=== PATIENT | female | born 1995 | race Caucasian/White ===

== ENCOUNTER → 2017-04-16 16:42 | Outpatient (CLI) | payer SELFPAY ==
[2017-04-16 17:46] LABS: Absolute Lymphocyte Count 3.15 X10^3/ul (0.83-4.51); Basophil# 0.04 X10^3/uL; Basophil% 0.3 % (0-1); Eosinophil# 0.18 X10^3/uL; Eosinophils% 1.5 % (0-5); Hematocrit 39.5 % (37-47); Hemoglobin 13.3 g/dl (12.0-15.0); Lymphocyte # 3.15 X10^3/ul (4.0); Lymphocyte % 25.8 % (19-41); Mean Corp Hgb Conc 33.7 g/gl (32-36); Mean Corpuscular Hgb 30.1 pg (27.0-32.0); Mean Corpuscular Volume 89.4 fL (81-99); Mean Platelet Vol. 9.6 fl (6.2-12.0); Monocyte# 0.81 X10^3/uL; Monocyte% 6.6 % (0-10); Neutrophil # 8.02 X10^3/uL (2.7-7.7); Neutrophil % 65.6 % (47-70); Platelet Count 209 K/mm3 (150-450); RBC Distribution Width CV 12.6 % (11.6-14.6); RBC Distribution Width SD 40.7 fl (35.1-43.9); Red Blood Count 4.42 M/mm3 (4.2-5.4); White Blood Count 12.2 K/mm3 (4.4-11.0)
[2017-04-16 17:56] LABS: Color, Urine Yellow (Yellow); Glucose, Dipstick Normal (Normal); Ketone-Dipstick Negative (Negative); Leukocyte Esterase-Dipstick 25 /ul (Negative); Nitrite-Dipstick Negative (Negative); Occult Blood-Urine 25 /ul (Negative); POSITIVE COUNT NO; POSITIVE DIFFERENTIAL NO; POSITIVE MORPHOLOGY NO; Protein-Dipstick Negative (Negative); Specific Gravity, Urine 1.015 (1.002-1.030); Urine Bilirubin Dipstick Negative (Negative); Urine Clarity Clear (Clear); Urine Urobilinogen Normal (Normal)
[2017-04-16 18:15] LABS: T4 Free Direct 0.76 ng/dL (0.76-1.46); Thyroid Stim Hormone (TSH) 3.58 uIU/mL (0.358-3.74)
[2017-04-16 19:37] LABS: HIV - WCH Non-Reactive (Nonreactive); Rubella IgG 305.2 IU/mL
[2017-04-16 19:51] LABS: Chlamydia Trachomatis by PCR Negative (Negative); Neisserai gonorrhoeae by PCR Negative (Negative); Probe Check PASS; Sample Adequacy Control PASS; Specimen Processing Control PASS
[2017-04-18 11:44] LABS: HEPATITIS B SURFACE AG Negative (Negative); Hep C Antibodies 0.1 s/co ratio (0.0-0.9)
[2017-04-20 02:54] LABS: Prenatal RPR NONREACTIVE (NONREACTIVE)
== END ==
PROVIDERS: Visit Provider Obstetrics & Gynecology
DX: Z34.81 Encounter for supervision of other normal pregnancy, first trimester (principal)
CPT/HCPCS: 36415; 81002; 84439; 84443; 85025; 86703; 86762; 86803; 87340; 87491; 87591

== ENCOUNTER → 2017-06-11 15:18 | Outpatient (CLI) | payer SELFPAY ==
[2017-06-11 15:24] LABS: Mucous, Urine 0 SEEN /hpf (<or=2+); Red Blood Cells-Urine 0 SEEN /hpf (0-5)
[2017-06-11 16:16] LABS: Color, Urine Straw (Yellow); Glucose, Dipstick Normal (Normal); Ketone-Dipstick Negative (Negative); Leukocyte Esterase-Dipstick 25 /ul (Negative); Nitrite-Dipstick Negative (Negative); Occult Blood-Urine 50 /ul (Negative); Protein-Dipstick Negative (Negative); Urine Bilirubin Dipstick Negative (Negative); Urine Clarity Sl. Cloudy (Clear); Urine Urobilinogen Normal (Normal)
[2017-06-11 16:38] LABS: Bacteria 3+ /hpf (None Seen); Squamous Epithelial Cells - UA 25-50 SEEN /hpf (5-10); White Blood Cells 5-10 SEEN /hpf (0-5)
[2017-06-11 17:50] LABS: Thyroid Stim Hormone (TSH) 2.29 uIU/mL (0.358-3.74)
[2017-06-12 12:26] LABS: Free T3 2.5 pg/mL (2.18-3.98); T4 Free Direct 1.02 ng/dL (0.76-1.46)
== END ==
PROVIDERS: Visit Provider Obstetrics & Gynecology
DX: Z34.82 Encounter for supervision of other normal pregnancy, second trimester (principal)
CPT/HCPCS: 36415; 81001; 84439; 84443; 84481

== ENCOUNTER → 2017-06-19 13:28 | Outpatient (CLI) | payer SELFPAY | PROVIDERS: Visit Provider Obstetrics & Gynecology | DX: N39.0 Urinary tract infection, site not specified (principal) | CPT/HCPCS: 87086 ==

== ENCOUNTER → 2017-08-10 15:49 | Outpatient (CLI) | payer SELFPAY | PROVIDERS: Visit Provider Otolaryngology Otolaryngology/Facial Plastic Surgery | DX: J03.90 Acute tonsillitis, unspecified (principal) | CPT/HCPCS: 87070; 87077 ==

== ENCOUNTER 2017-09-01 19:10 | Outpatient (CLI) | payer SELFPAY ==
[2017-09-01 20:03] VITALS: BMI 30.7
[2017-09-01 20:05] LABS: Bacteria 0 SEEN /hpf (None Seen); Mucous, Urine 0 SEEN /hpf (<or=2+); Red Blood Cells-Urine 0 SEEN /hpf (0-5); Squamous Epithelial Cells - UA 0 SEEN /hpf (5-10); White Blood Cells 0 SEEN /hpf (0-5)
[2017-09-01 20:08] LABS: Color, Urine Yellow (Yellow); Glucose, Dipstick Normal (Normal); Ketone-Dipstick Negative (Negative); Leukocyte Esterase-Dipstick Negative /ul (Negative); Nitrite-Dipstick Negative (Negative); Occult Blood-Urine Negative /ul (Negative); Protein-Dipstick Negative (Negative); Specific Gravity, Urine 1.005 (1.002-1.030); Urine Bilirubin Dipstick Negative (Negative); Urine Clarity Clear (Clear); Urine Urobilinogen Normal (Normal); Urine pH 6.5 (5.0 - 8.0)
--- NOTE | 2017-09-02 04:45 | OB.TRI.NOTE ---
History of Present Illness Date of Service: 09/01/17 Was patient seen by the physician?: No Reason For Visit: DECREASED MOVEMENT Date of Service: 09/01/17 Final PONCHO: 12/02/17 Gestational age: 26 wks 6 days History of Present Illness: 21 yo with dec FM. Had vaginal pain in last night or so, but this resolved. Took Azo. Allergies No Known Allergies Allergy (Verified 09/01/17 20:04) NST - FHR Rate Baby A Baseline: 130-140s with accels to 160s Variability:: Moderate Accelerations:: 15 x 15 Decelerations:: None, Early NST Reactive:: Yes, Appropriate for gestational age FHR Category:: Category I Uterine Activity:: no UCs Impression/Plan 26 w 6 d Decreased movement Reactive NST Dischg Home. Return to [facility] if inc s/sx of labor, or if dec movement
== END 2017-09-01 20:40 | disposition home or self-care (01) ==
LOC: WPOUT 19:32 → WP 19:56
PROVIDERS: Family Provider Family Medicine; PCP Family Medicine; Visit Provider Obstetrics & Gynecology
DX: O36.8120 Decreased fetal movements, second trimester, not applicable or unspecified (principal); Z3A.26 26 weeks gestation of pregnancy
CPT/HCPCS: 59025; 59050; 81001; 99218; G0378

== ENCOUNTER → 2017-09-06 09:27 | Outpatient (CLI) | payer SELFPAY ==
[2017-09-06 12:24] LABS: Hematocrit 32.3 % (37-47); Hemoglobin 10.2 g/dl (12.0-15.0); Mean Corp Hgb Conc 31.6 g/gl (32-36); Mean Corpuscular Hgb 28.7 pg (27.0-32.0); Mean Corpuscular Volume 90.7 fL (81-99); Mean Platelet Vol. 9.9 fl (6.2-12.0); Platelet Count 235 K/mm3 (150-450); RBC Distribution Width CV 12.8 % (11.6-14.6); RBC Distribution Width SD 42.1 fl (35.1-43.9); Red Blood Count 3.56 M/mm3 (4.2-5.4); White Blood Count 9.5 K/mm3 (4.4-11.0)
[2017-09-06 12:36] LABS: Scan Indicated on CBC? Y/N NO
[2017-09-06 12:41] LABS: Free T3 2.6 pg/mL (2.18-3.98); Glucose Challenge Gest 1H 50g 137 mg/dL (70-140); T4 Free Direct 0.71 ng/dL (0.76-1.46); Thyroid Stim Hormone (TSH) 1.64 uIU/mL (0.358-3.74)
== END ==
PROVIDERS: Visit Provider Obstetrics & Gynecology
DX: Z34.82 Encounter for supervision of other normal pregnancy, second trimester (principal)
CPT/HCPCS: 36415; 82950; 84439; 84443; 84481; 85027

== ENCOUNTER → 2017-11-02 10:42 | Outpatient (CLI) | payer SELFPAY ==
[2017-11-02 14:02] LABS: Free T3 2.3 pg/mL (2.18-3.98); T4 Free Direct 0.74 ng/dL (0.76-1.46); Thyroid Stim Hormone (TSH) 1.83 uIU/mL (0.358-3.74)
[2017-11-02 17:13] LABS: Group B Strep DNA By PCR Negative (Negative); Internal Control PASS; Probe Check PASS; Specimen Processing Control PASS
== END ==
PROVIDERS: Visit Provider Obstetrics & Gynecology
DX: Z34.83 Encounter for supervision of other normal pregnancy, third trimester (principal); E03.9 Hypothyroidism, unspecified; N39.0 Urinary tract infection, site not specified
CPT/HCPCS: 36415; 84439; 84443; 84481; 87081; 87086; 87088; 87653

== ENCOUNTER 2017-11-18 18:22 | Inpatient (IN) | payer SELFPAY ==
[2017-11-18 18:15] VITALS: BMI 34.0
[2017-11-18 18:17] LABS: ROM Internal Control Test YES-OK TO RESULT pt. (Internal QC)
[2017-11-18 18:18] LABS: ROM Patient Test POSITIVE (Negative)
[2017-11-18] MEDS: Lactated Ringers 1,000 ML 50 ML IV ×2 (18:35→21:37)
[2017-11-18 19:31] LABS: Hemoglobin 10.8 g/dl (12.0-15.0); Mean Corp Hgb Conc 30.9 g/gl (32-36); Mean Corpuscular Hgb 25.7 pg (27.0-32.0); Mean Corpuscular Volume 83.3 fL (81-99); Mean Platelet Vol. 10.4 fl (6.2-12.0); Platelet Count 203 K/mm3 (150-450); RBC Distribution Width CV 15.2 % (11.6-14.6); RBC Distribution Width SD 46.3 fl (35.1-43.9); White Blood Count 9.8 K/mm3 (4.4-11.0)
[2017-11-18 19:33] LABS: Scan Indicated on CBC? Y/N NO
[2017-11-18] MEDS: Mag Hydrox/Al Hydrox/Simeth 30 ML UDC PO (20:53)
[2017-11-18] MEDS: fentaNYL-bupivacaine (epidural) 100 ML BAG EPIDURAL (22:55)
[2017-11-19] MEDS: Lactated Ringers 1,000 ML 50 ML IV ×2 (00:03→04:47)
[2017-11-19] MEDS: fentaNYL-bupivacaine (epidural) 100 ML BAG EPIDURAL (02:43)
[2017-11-19] MEDS: Mag Hydrox/Al Hydrox/Simeth 30 ML UDC PO (04:46)
[2017-11-19] MEDS: Oxytocin 30 units/NS 500 ml 30 UNITS/500 ML IV.SOLN 334 UNITS IV (06:18)
--- NOTE | 2017-11-19 06:32 | PCM.OB.VAG ---
Vaginal Delivery Maternal Presentation: Active Labor, Spontaneous Rupture of Membranes Amniotic Membrane Rupture Type: Spontaneous Amniotic Fluid Description: Clear Final PONCHO: 12/02/17 Final PONCHO Source: US <20 weeks Gestational age: 38 Weeks and 1 Days Date of Procedure: 11/19/17 Pre-Operative Diagnosis: IUP Post-Operative Diagnosis: IUP Surgery/ Procedure Performed: Spontaneous Vaginal Delivery Anesthesiologist: Lemuel Recinos Type of Anesthesia: Epidural Description of Procedure: Spontaneous vaginal delivery of a viable female with Apgars of 8/9 from an occiput anterior presentation with clear amniotic fluid and normal three-vessel placenta. First-degree midline episiotomy extended to a second-degree midline laceration repaired in layers with 3-0 Vicryl suture under epidural and local. Sponge counts okay. Delivery physician: José Miguel Aiken MD. Presentation: Vertex Placental Delivery Description: Spontaneous Placenta Disposition: [facility] Cord Vessel Description: 3 Vessels Cord Entanglement: None Estimated Blood Loss: 250 cc A gender: Female (1 minute): 8 (5 minute): 9 Episiotomy Description: Midline, 1st degree Laceration: Midline, 2nd degree Medications given after delivery: IV Pitocin Complications: None
--- NOTE | 2017-11-19 06:36 | OP.PCM_ITS ---
Vaginal Delivery Maternal Presentation: Active Labor, Spontaneous Rupture of Membranes Amniotic Membrane Rupture Type: Spontaneous Amniotic Fluid Description: Clear Final PONCHO: 12/02/17 Final PONCHO Source: US <20 weeks Gestational age: 38 Weeks and 1 Days Date of Procedure: 11/19/17 Pre-Operative Diagnosis: IUP Post-Operative Diagnosis: IUP Surgery/ Procedure Performed: Spontaneous Vaginal Delivery Anesthesiologist: Lemuel Recinos Type of Anesthesia: Epidural Description of Procedure: Spontaneous vaginal delivery of a viable female with Apgars of 8/9 from an occiput anterior presentation with clear amniotic fluid and normal three-ves juliano placenta. First-degree midline episiotomy extended to a second-degree midline laceration repaired in layers with 3-0 Vicryl suture under epidural and local. Sponge counts okay. Delivery physician: José Miguel Aiken MD. Presentation: Vertex Placental Delivery Description: Spontaneous Placenta Disposition: [facility] Cord Vessel Description: 3 Vessels Cord Entanglement: None Estimated Blood Loss: 250 cc A gender: Female (1 minute): 8 (5 minute): 9 Episiotomy Description: Midline, 1st degree Laceration: Midline, 2nd degree Medications given after delivery: IV Pitocin Complications: None
--- NOTE | 2017-11-19 06:42 | PCM.DCVAG ---
Discharge Diet: No Restrictions Discharge Activity: May Shower, May Take a Tub Bath May resume sexual activity in: 4-6 weeks Additional Activity Instructions:: Nothing in the vagina for 4-6 weeks. You may return to work/school in 6 weeks. Call your doctor if you observe: Fever of 101 or Higher, Inability to urinate, Inability to have a bowel movement, Using more than one pad per hour Additional Instructions: If you experience any of the following, contact your healthcare provider. Bleeding that soaks a pad every hour for 2 hours Fever 100.4 or higher Unrelieved incision or abdominal pain Swelling, redness, discharge or bleeding from your incision or episiotomy site Your incision begins to separate Problems urinating (including inability to urinate or burning while urinating). Visual changes Severe headache Flu-like symptoms Pain or redness in one of both of your breasts Pain, warmth, tenderness or swelling in your legs, especially the calf area Frequent nausea and vomiting Symptoms of depression or anxiety If you experience any of the following, call 911 or go to the nearest Emergency Room. Chest pain Problems breathing Seizure activity Partial or complete paralysis of a body part, slurred speech, weakness or drooping of the face, or a sudden inability to walk or hold your balance Allergies/Adverse Reactions: Allergies No Known Allergies Allergy (Verified 09/01/17 20:04) Medications to take at Discharge Vits [Prenatabs FA] 1 tablet PO DAILY 11/18/17 Thyroid,Pork [Whiteface Thyroid] 45 mg PO DAILY 11/18/17 Please Follow Up With: Lulu Ivan MD - [phone] When: Call to make an appointment with your doctor in 6 weeks. Primary Care Physician: Frederic Jacome MD [Primary Care Provider] - Test Results: Test results from this visit will be discussed in further detail at your follow-up appointment, if applicable.
--- NOTE | 2017-11-19 06:43 | DCINST_ITS ---
Discharge Diet: No Restrictions Discharge Activity: May Shower, May Take a Tub Bath May resume sexual activity in: 4-6 weeks Additional Activity Instructions:: Nothing in the vagina for 4-6 weeks. You may return to work/school in 6 weeks. Call your doctor if you observe: Fever of 101 or Higher, Inability to urinate, Inability to have a bowel movement, Using more than one pad per hour Additional Instructions: If you experience any of the following, contact your healthcare provider. * Bleeding that soaks a pad every hour for 2 hours * Fever 100.4 or higher * Unrelieved incision or abdominal pain * Swelling, redness, discharge or bleeding from your incision or episiotomy site * Your incision begins to separate * Problems urinating (including inability to urinate or burning while urinating). * Visual changes * Severe headache * Flu-like symptoms * Pain or redness in one of both of your breasts * Pain, warmth, tenderness or swelling in your legs, especially the calf area * Frequent nausea and vomiting * Symptoms of depression or anxiety If you experience any of the following, call 911 or go to the nearest Emergency Room. * Chest pain * Problems breathing * Seizure activity * Partial or complete paralysis of a body part, slurred speech, weakness or drooping of the face, or a sudden inability to walk or hold your balance Allergies/Adverse Reactions: Allergies No Known Allergies Allergy (Verified 09/01/17 20:04) Medications to take at Discharge Vits [Prenatabs FA] 1 tablet PO DAILY 11/18/17 Thyroid,Pork [Arden Thyroid] 45 mg PO DAILY 11/18/17 Please Follow Up With: Lulu Ivan MD - [phone] When: Call to make an appointment with your doctor in 6 weeks. Primary Care Physician: Frederic Jacome MD [Primary Care Provider] - Test Results: Test results from this visit will be discussed in further detail at your follow- up appointment, if applicable.
[2017-11-19] MEDS: Oxytocin 30 units/NS 500 ml 30 UNITS/500 ML IV.SOLN 167 UNITS IV (06:47)
[2017-11-19] MEDS: Ibuprofen 600 MG Tablet PO ×2 (07:20→14:50)
[2017-11-19] MEDS: oxyCODONE 5 MG Tablet PO ×4 (08:38→21:32)
[2017-11-19] MEDS: Senna/Docusate Sodium 1 Tablet PO (08:39)
--- NOTE | 2017-11-19 09:54 | NURSING ---
0835: Pt ambulated to , nurse assist x 2. Voided, minimal VB. Pt fainted on commode with nurse at side. Pt was not injured. Annabel,RANDI and RANDI Oquendo charge arrieved with emergency call light activated. Pt lost consciousness for approximately 5 sec. Assisted pt to after A&Ox 3. Pt back to bed. FF-1. Small VB. Instructed pt to not get out of bed w/o nurse assist x 2. Pt and verbalized understanding. Refer to VS in QS. Noted pulse to be low 50's and prior to was 80-90's. Pt stable at present. Denies further needs.
[2017-11-19 12:00] VITALS: BP 101/50; PULSE 70; RESP 12; TEMP 36.6
[2017-11-19] MEDS: Acetaminophen 500 MG Tablet 1000 MG PO (12:33)
[2017-11-19 17:00] VITALS: BP 116/53; PULSE 92; RESP 18; TEMP 37.7
[2017-11-19] MEDS: Thyroid 15 MG Tablet 45 MG PO (17:17)
[2017-11-19 20:41] VITALS: BP 122/63; PULSE 87; RESP 16; TEMP 36.7; O2SAT 95
[2017-11-19 23:35] VITALS: BP 106/54; PULSE 87; RESP 16; TEMP 37.1
[2017-11-20] MEDS: Ibuprofen 600 MG Tablet PO ×4 (00:02→22:28)
[2017-11-20 03:25] VITALS: BP 108/61; PULSE 98; RESP 16; TEMP 36.7
[2017-11-20] MEDS: oxyCODONE 5 MG Tablet PO ×2 (03:42→08:51)
--- NOTE | 2017-11-20 08:28 | PCM.PN.OB ---
Subjective: PPD#1 Doing OK. Taking OxyIR for perineal and hemorrhoid pain. Asking if will have hemorrhoids with each delivery now. Breast feeding well. Delivered yesterday AM approx 6 am. No concerns other than hemorrhoids. - Physical Exam General: Alert, Oriented x3, Cooperative, No apparent distress HEENT: Atraumatic Neck: Supple Abdomen: Soft - Fundus firm NT inf to umbilicus. Extremities: No clubbing, No cyanosis, No edema Neurological: Cranial nerves II-XII grossly intact Psych/Mental Status: Normal Affect Comment: Hemorrhoids noted, soft, pale. no thrombosis noted. Vital Signs Temp Pulse Resp BP Pulse Ox 98.0 F 98 16 108/61 95 11/20/17 03:25 11/20/17 03:25 11/20/17 03:25 11/20/17 03:25 11/19/17 20:41 Oxygen Delivery Method Room Air Weight: 81.647 kg Body Mass Index (BMI) 34.0 Intake and Output for Last 24 Hours 11/18/17 11/19/17 11/20/17 23:59 23:59 23:59 Intake Total 3084 / 3084 Output Total 1400 / 1400 Balance 1684 / 1684 Medical Necessity - Tobacco Use Smoking Status: Never smoker Assessment/Plan PPD#1 Stable pp. Dischg home tomorrow Hemorrhoids -- steroid hemorrhoid cream -- stool softeners continue care
[2017-11-20 08:32] VITALS: BP 108/51; PULSE 74; RESP 16; TEMP 37.2; O2SAT 96
[2017-11-20] MEDS: Senna/Docusate Sodium 1 Tablet PO (08:51)
[2017-11-20] MEDS: Hydrocortisone 2.5% Crm 1 APPLIC TOPICAL (11:33)
[2017-11-20] MEDS: Acetaminophen 500 MG Tablet 1000 MG PO (12:23)
[2017-11-20 14:00] VITALS: BP 120/68; PULSE 70; RESP 16; TEMP 36.6; O2SAT 97
[2017-11-20 20:15] VITALS: BP 123/80; PULSE 72; RESP 16; TEMP 36.7
[2017-11-20] MEDS: Thyroid 15 MG Tablet 45 MG PO (22:29)
[2017-11-21 02:40] VITALS: BP 124/77; PULSE 102; RESP 18; TEMP 36.8
[2017-11-21] MEDS: oxyCODONE 5 MG Tablet PO ×3 (03:32→13:19)
[2017-11-21] MEDS: Senna/Docusate Sodium 1 Tablet PO (08:13)
[2017-11-21 08:20] VITALS: BP 114/64; PULSE 86; RESP 16; TEMP 36.7; O2SAT 95
--- NOTE | 2017-11-21 08:46 | PCM.PN.OB ---
Subjective: PPD#2 vaginal delivery Still with painful hemorrhoids. Soft BM last night. Steroid cream is helping. Taking OxyIR but only minimal use and wanting RX to go home with. States plans to take at night to help with pain so she can rest. Baby under bili lights until dischg. but ok to go home today with close peds F/U - Physical Exam General: Alert, Oriented x3, Cooperative, No apparent distress HEENT: Atraumatic Neck: Supple Psych/Mental Status: Normal Affect Vital Signs Temp Pulse Resp BP Pulse Ox 98.0 F 86 16 114/64 95 11/21/17 08:20 11/21/17 08:20 11/21/17 08:20 11/21/17 08:20 11/21/17 08:20 Oxygen Delivery Method Room Air Weight: 81.647 kg Body Mass Index (BMI) 34.0 Intake and Output for Last 24 Hours 11/19/17 11/20/17 11/21/17 23:59 23:59 23:59 Intake Total 3084 / 3084 Output Total 1400 / 1400 Balance 1684 / 1684 Medical Necessity - Tobacco Use Smoking Status: Never smoker Assessment/Plan PPD#2 Stable pp. Dischg home today Hemorrhoids -- steroid hemorrhoid cream -- stool softeners -- RX sent in for OxyIR 4 tabs. RTO in 1-2 wk for hemorrhoid f/u BUT if these are much improved, then cancel that appt and plan for 6 wk pp check
--- NOTE | 2017-11-21 08:49 | NURSING ---
Addendum entered by Jeannette Arias 11/21/17 08:59: Given at 0815. Education about medications were given at this time Original Note: Administered OxyIR (1 tab per pt request) and Senokot (2 tab) with clinical instructor (Chasity)
[2017-11-21] MEDS: Ibuprofen 600 MG Tablet PO (09:32)
[2017-11-21 13:22] VITALS: BP 128/71; PULSE 88; RESP 16; TEMP 36.6; O2SAT 96
--- NOTE | 2017-11-21 14:22 | NURSING ---
This nursing services manager reviewed the charting completed by Hermilo Arias and it is complete.
== END 2017-11-21 14:30 | disposition home or self-care (01) | DRG 806 ==
LOC: WPOUT 18:23
PROVIDERS: Admitting Provider Obstetrics & Gynecology; Family Provider Family Medicine; PCP Family Medicine; Referring Provider Obstetrics & Gynecology; Visit Provider Obstetrics & Gynecology
DX: O70.1 Second degree perineal laceration during delivery (principal); O22.43 Hemorrhoids in pregnancy, third trimester; O99.284 Endocrine, nutritional and metabolic diseases complicating childbirth; E03.9 Hypothyroidism, unspecified; Z3A.38 38 weeks gestation of pregnancy; Z37.0 Single live birth
CPT/HCPCS: 59025; 59050; 84112; 85027; 86850; 86900; 99218; J7120; 90686; G0378; J3490

== ENCOUNTER → 2018-01-17 11:28 | Outpatient (CLI) | payer SELFPAY ==
[2018-01-17 13:15] LABS: Free T3 5.8 pg/mL (2.18-3.98); T4 Free Direct 1.86 ng/dL (0.76-1.46); Thyroid Stim Hormone (TSH) 0.01 uIU/mL (0.358-3.74)
[2018-01-18 11:53] LABS: Thyroid Peroxidase AB 244 IU/mL (0-34)
== END ==
PROVIDERS: Family Provider Family Medicine; PCP Family Medicine; Visit Provider Obstetrics & Gynecology
DX: E03.9 Hypothyroidism, unspecified (principal)
CPT/HCPCS: 36415; 84439; 84443; 84481; 86376

== ENCOUNTER → 2018-01-30 14:47 | Outpatient (CLI) | payer SELFPAY ==
--- NOTE | 2018-01-30 14:51 | US_ITS ---
HISTORY: HYPOTHYROIDISM TECHNIQUE: Marrufo scale and color doppler imaging was performed of the thyroid gland. COMPARISON: None FINDINGS: The thyroid gland is borderline enlarged with measurements approximate as follows: Right lobe 5 x 1.9 x 1.7 cm Left lobe 5.5 x 2 x 2.2 cm Thyroid isthmus 0.2 cm The right and left thyroid lobes showed diffusely heterogenous echotexture compatible with the sequela of thyroiditis. No focal nodule or suspicious fluid collection. US/Thyroid IMPRESSION: 1. The thyroid gland is borderline enlarged and shows heterogenous echotexture in keeping with post thyroiditis sequela. 2. No suspicious lesion seen. at 0453 Reported and signed by: Rio Castro MD Electronically Signed: Rio Castro, at 4:50 EST Tel , Service support ,
== END ==
PROVIDERS: Family Provider Family Medicine; PCP Family Medicine; Referring Provider Obstetrics & Gynecology; Visit Provider Obstetrics & Gynecology
DX: E03.9 Hypothyroidism, unspecified (principal); E06.3 Autoimmune thyroiditis
CPT/HCPCS: 76536

== ENCOUNTER → 2019-10-21 15:31 | Outpatient (CLI) | payer SELFPAY | PROVIDERS: PCP Family Medicine; Visit Provider Obstetrics & Gynecology | DX: Z12.4 Encounter for screening for malignant neoplasm of cervix (principal) | CPT/HCPCS: 88175; G0145 ==

== ENCOUNTER 2020-01-22 07:23 | Day surgery (SDC) | payer SELFPAY ==
[2020-01-13 16:57] LABS: Hematocrit 43.9 % (37-47); Hemoglobin 14.1 g/dL (12.0-15.0); Mean Corp Hgb Conc 32.1 g/dL (32-36); Mean Corpuscular Hgb 30.2 pg (27.0-32.0); Mean Platelet Vol. 9.6 fl (6.2-12.0); Platelet Count 229 K/mm3 (150-450); RBC Distribution Width CV 12.3 % (11.6-14.6); RBC Distribution Width SD 42.5 fl (35.1-43.9); Red Blood Count 4.67 M/mm3 (4.2-5.4); White Blood Count 8.5 K/mm3 (4.4-11.0)
[2020-01-13 17:07] LABS: International Normalized Ratio 0.9; Partial Thromboplast Time 29.4 Seconds (24.1-36.2); Prothrombin Time (Protime)PT. 11.8 SECONDS (11.7-14.9)
[2020-01-13 17:34] LABS: T3 Total - Triiodothyronine 0.89 ng/mL (0.6-1.81)
[2020-01-13 17:40] LABS: T4 Free Direct 1.03 ng/dL (0.76-1.46); Thyroid Stim Hormone (TSH) 2.89 uIU/mL (0.358-3.74)
--- NOTE | 2020-01-22 07:12 | PCM.HPOB.BLA ---
- Problem List (1) Chronic pelvic pain in female Status: Chronic History and Physical Date of Admission: 01/22/20 Date: 01/20/2020 Name: LEXIS LINDER Age: 24 Date of : 1995 Lexis Linder, a 24 year old female 1 0 0 0 1, presents for Diagnostic laparoscopy, surgical treatment of endometriosis on January 22, 2020 at 9:00. -- Pre-Op -- Lexis is here for preop visit for scheduled diagnostic laparoscopy and surgical treatment of endometriosis as indicated for hx chronic pelvic and pain back. m MEDICATIONS HISTORY: Current medications prescribed by our practice are: 1. Synthroid 75 mcg tablet, 1 tab po daily Patient is also takin. 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), Chronic Back pain and Summer's Thyroiditis Accidents - no injuries of consequence Hospitalizations - None Review of Systems: GENERAL - Denies fever, or chills SKIN - Denies skin changes EYES - wears eye glasses and wears contact lenses EARS - Denies difficulty hearing NOSE - Denies nasal congestion or bleeding MOUTH - Denies sore throat or difficulty swallowing NECK - Denies pain or swelling RESPIRATORY - Denies shortness of breath or wheezing CARDIOVASCULAR - Denies palpitations or chest pain GASTROINTESTINAL - Denies nausea, vomiting, diarrhea, constipation GENITOURINARY - menses sl irregular MUSCULOSKELETAL - chronic back pain NEUROLOGICAL - Denies localized numbness or weakness PSYCHIATRIC - anxiety ENDOCRINE - Denies heat or cold intolerance, weight loss or gain HEMATO-IMMUNOLOGIC - Denies excesive bleeding with cuts SOCIAL HISTORY: Alcohol Use - socially Smoking - Never Diet - balanced Diet, caffeine < 2 drinks per day and tries to drink about 60 oz day. Lifestyle - Exercise - active work Seat Belt Use - always Employer - [employer] Job Description - special events director Illicit Drug Use - denies use of street drugs Sexual Activity - [employer]IVE [employer] PARTNER Residence - with spouse Hours Worked - ? Spouse-Sig Other Name - Justin Linder Spouse-Sig Other Occupation - [employer] Spouse-Sig Other Phone No - [phone] Children Name(s) - Jaimie Control - attempting FAMILY HISTORY: MENSTRUAL HISTORY: LMP Known?- DefiniteAmount/Duration - 4-7, Regularity - Regular, Frequency - 26-32 days, LMP - 12/25/19, Age Onset Menarche - 7 PAST PREGNANCIES: Total Pregnancies - 1; Full Term Pregnancies - 1; Premature - 0; Abortions, Induced - 0; Abortions, Spontaneous - 0; Ectopics - 0; Multiple Births - 0; Living Children - 1 SURGICAL HISTORY: 1. [place] Teeth Removal, 2010 ; - PHYSICAL EXAM BP- 120/70 Sitting, Right arm, regular cuff Temp- 98.9 Taken Orally Weight- 121.19834 lbs Height- 62 inch BMI:22.18 CONSTITUTIONAL - NAD, well nourished, and well developed SKIN - No rash, lesions, or ulcers HEENT - normocephalic, atraumatic, sclerae anicteric NECK - No nodes, no nuchal rigidity and thyroid normal size and texture LUNGS - CTA x2 without wheezes, crackles or rales CARDIAC - Regular rate and rhythm without rubs, murmurs, or gallops ABDOMEN - Without hepatosplenomegaly, distention, masses, rebound, or guarding; normal bowel sounds; no hernias NEUROLOGICAL - normal gait, normal balance, normal motor PSYCHIATRIC - A and O to time, place, person, mood and affect External Genitial Vagina - non-tender without lesions Urethra/Urethral Meatus - non-tender Bladder - non-tender Vagina - vaginal johnson are pink and moist without loss of rugae and no evidence of atropy Cervix - without cervical motion tenderness and has normal size and features without evident lesions Uterus - 5-6 cm in size, mobile and nontender Adnexa - clear without masses or tenderness ASSESSMENT/PLAN: 1. Deep Dyspareunia, Endometriosis, Unspecified, Pelvic And Perineal Pain and Superficial (introital) Dyspareunia Chronic back and pelvic pain Prior exam with uterosacral tenderness, however recent exams limited by pt discomfort Plan for diagnostic laparoscopy, surgical treatment of endometriosis as indicated. Consents reviewed at length. Procedural r/b/i/a reviewed - pt understands no availability of surgeon for advanced endometriosis resection at [facility] and this may be reason for referral following procedure. Offered referral to specialist at this time as alternative as well, pt declines Preop instructions reviewed f/u preop labs and COVID19 screen
[2020-01-22 07:45] VITALS: BP 105/59; PULSE 78; RESP 16; TEMP 37.6; O2SAT 97; BMI 23.0
[2020-01-22 07:51] LABS: Internal QC Validated? YES +Cl - CLEAR BKGD; Pregnancy, Urine Negative Negative
[2020-01-22] MEDS: Lactated Ringers 1,000 ML 125 ML IV (07:59)
[2020-01-22] MEDS: Cefotetan 2 GM in 0.9% NS 100 ML IV (09:00)
--- NOTE | 2020-01-22 09:00 | MISC_PTH ---
PATIENT: GLENROY LINDER [place]: [facility] [place][id number] AGE/SX: 24/F ROOM: RE01/22/[address]: Dr. Lulu Graves MD : 1995 BED: DIS: 01/22/2020 SPEC #: [id number] RECD: 01/22/20 13:57 STATUS: HUNTER DAJA #: [id number] LISA: 01/22/20 09:[address]: Lulu Woodruff DEPT: SURGICAL PATHOLOGY RECD BY: Shelby Nicole ENTERED: 01/23/20 07:48 SP TYPE: [facility] [place] SONY DR: Dr. Frederic Jacome MD Tissues: A - Perineum, NOS B - Perineum, NOS C - Sacral region Procedures: Surgery Specimen Level IV HEADER OPERATION: Diagnostic laparoscopy, treatment of endometriosis PRE-OP DIAGNOSIS: Pelvic pain TISSUE SUBMITTED: A - Posterior cul-de-sac #1, B - Posterior cul-de-sac #2, C - Left uterosacral ligament MICROSCOPIC DIAGNOSIS A. Posterior cul-de-sac #1, biopsy: Fibrous tissue with minimal chronic inflammation. B. Posterior cul-de-sac #2, biopsy: Fibrous tissue with minimal chronic inflammation. C. Left uterosacral ligament, biopsy: Mild chronic inflammation. AM:julieta 01/26/20 MICROSCOPIC DESCRIPTION Slides are reviewed. GROSS DESCRIPTION A - Received in fixative is one container labeled with the patient's name and designated posterior culdesac #1. The specimen consists of a piece of herring, hemorrhagic soft tissue measuring 1 x 0.5 x 0.2 cm. The entire specimen is submitted in one cassette. B - Received in fixative is one container labeled with the patient's name and designated posterior culdesac #2. The specimen consists of a piece of herring, hemorrhagic soft tissue measuring 0.5 x 0.3 x 0.2 cm. The entire specimen is submitted in one cassette. C - Received in fixative is one container labeled with the patient's name and designated left uterosacral ligament. The specimen consists of a piece of herring, hemorrhagic soft tissue measuring 0.9 x 0.5 x 0.3 cm. The entire specimen is submitted in one cassette. / SJ:julieta 01/23/20 TC:3 CPT: 21342 x3
[2020-01-22] MEDS: Bupivacaine Mpf 0.5% 30 ML VIAL (11:04)
--- NOTE | 2020-01-22 11:07 | DCINST_ITS ---
- Discharge Diagnoses Current Active Problems: Current Active and Chronic Problems (Last Updated 08/06/19 @ 11:43 by Deondre Spence) Chronic pelvic pain in female (Chronic) Reason(s) for Visit for Discharge Instructions: Endometriosis You will use the following diet at home:: No restrictions Your food should be the consistency of: Regular Discharge Activity: Return to Normal Activity, May not drive while taking narcotic pain medications., May Shower, - - No tub bath for 2 weeks, Nothing in the vagina for 4 weeks (tampons, douching, intercourse) May resume sexual activity in: 4-6 weeks Lifting Restrictions: 10lb Call your doctor if your incision/area has: Continuous Slow Oozing, Sudden Increased Bleeding, Increased Pain/ Swelling, Increased Redness Call your doctor if you observe: Fever of 101 or Higher, Inability to urinate, Inability to have a bowel movement, Using more than one pad per hour, Shortness of breath, Chest pain, Calf discomfort, Uncontrolled pain Suture Line Care: Avoid Pulling/Pushing Remove Dressing in (days):: 1 - 24 hours Cleanse incision/area with: Soap & Water Allergies/Adverse Reactions: Allergies oxycodone Allergy (Verified 01/13/20 09:14) Shortness of breath Medications to take at Discharge albuterol sulfate 90 mcg/actuation aerosol inhaler 2 puff INHALATION Q6H PRN 08/06/19 Acetylcysteine [Nac] 1,200 mg PO DAILY 01/13/20 Ascorbic Acid [Vitamin C] 500 mg PO DAILY 01/13/20 Cholecalciferol (Vitamin D3) [Vitamin D3] 2,000 unit PO DAILY 01/13/20 Inflammatone 1 cap PO DAILY 01/13/20 Inositol 4.1 gm PO DAILY 01/13/20 Levothyroxine Sodium [Synthroid] 75 mcg PO DAILY 01/13/20 Magnesium Amino Acid Chelate [Magnesium] 300 mg PO DAILY 01/13/20 Vits [Prenatabs FA ] 1 tab PO DAILY 01/13/20 Thyrosol 1 cap PO DAILY 01/13/20 Hydrocodone Bitart/Apap 5-325 [Vidal 5/325] 1 tablet PO Q6H PRN PRN 5 Days #20 tablet 01/22/20 Ibuprofen 600 mg PO TID PRN #30 tab 01/22/20 The following prescriptions were given: Ibuprofen 600 mg PO TID PRN #30 tab PRN Reason: Pain 1-10 Or Fever Transmission Status: Pending to [facility] Hydrocodone Bitart/Apap 5-325 [Vidal 5/325] 1 tablet PO Q6H PRN PRN 5 Days #20 tablet PRN Reason: Pain Score 6-10 Transmission Status: Sent to [facility] Primary Care Physician: Frederic Jacome MD [Primary Care Provider] - Test Results: Test results from this visit will be discussed in further detail at your follow- up appointment, if applicable. Please Follow Up With: Lulu Woodruff MD When: 2-4 weeks
--- NOTE | 2020-01-22 11:10 | PCM.OPRPT ---
Problem List (1) Chronic pelvic pain in female Status: Chronic (2) Endometriosis determined by laparoscopy Status: Acute Report of Operation Date of Procedure: 01/22/20 Anesthesiologist: Juan Lopez Specimen's removed: 1. posterior culdesac peritoneum #1. 2. posterior culdesac peritoneum #2. 3. Left uterosacral peritoneum Estimated Blood Loss (mL): 10 ml Fluids Replaced: 1800 ml Description of Procedure: Indications: 24-year-old 1 para 1 with a history of worsening chronic pelvic and lower back pain, dysmenorrhea and dyspareunia presents for scheduled diagnostic laparoscopy and surgical treatment of endometriosis as indicated. Procedural risks, benefits, indications and alternatives were reviewed preoperatively and patient opted to proceed. Procedure: Patient was brought to the operating room and signed was performed. She is placed in the dorsal supine position and induced under general anesthesia and intubated. She was repositioned to dorsal lithotomy and examination under anesthesia was performed. The perineum was prepped and straight catheterization of the bladder performed. She was subsequently draped in sterile fashion. Patient was placed into high lithotomy and a speculum was placed vaginally. The anterior cervical lip was grasped using a single-tooth tenaculum. The uterus sounded to 8 cm. A ZAMI uterine manipulator was placed and secured. The tenaculum was removed from the cervix with hemostatic tenaculum site and the speculum removed from the vagina. Patient was placed into low lithotomy attention turned to the abdomen An inferior umbilical incision was made using a scalpel and a Veress needle was placed with successful hanging drop test and no aspirate. Abdominal entry pressures were low. The abdomen was insufflated to 15 mmHg. The Veress needle was removed and a 5 mm port placed under laparoscopic guidance confirming entry into the abdominal cavity. A suprapubic incision was made and 5 mm port also placed at the site. The patient was placed into Trendelenburg. The abdomen and pelvis were inspected with clear micellar lesions noted along the left uterosacral ligament as well as yellow lesions in the posterior cul-de-sac just inferior to the draining of the uterosacral ligaments. There is also adhesion of the right colon to the abdominal sidewall however no evidence of endometriosis was present. A tap block using half percent Sensorcaine was placed in the right and left lower quadrants under laparoscopic guidance. Incisions were placed in the right and left lower quadrants under transillumination and 5 mm ports placed at each of the sites for total of 4 ports. I proceeded with rectovaginal examination under laparoscopic guidance to further delineate the anatomy surrounding the posterior cul-de-sac lesions. The apical cul-de-sac lesion abutting the vagina were demarcated with wide boundary using the monopolar L-hook and the peritoneum including the lesion was excised. A second lesion more inferiorly was similarly excised and of the surrounding peritoneum using the monopolar energy. Attention was turned to the left pelvis and the left ureter was visualized transperitoneally inferior to the ovarian fossa and just lateral to the uterosacral ligament, as well as the uterine arteries. The left uterosacral ligament peritoneum was grasped and incised using the monopolar hook. The peritoneum was only dissected from the underlying alveolar tissue the ureter and uterine artery. Peritoneal biopsy was excised using the laparoscopic scissors. A small vessel bleed just adjacent to the left uterine artery was controlled using polar electrocoagulation with the [place] with excellent hemostasis. Attention was turned to the right abdominal sidewall and adhesiolysis was performed using monopolar energy to release filmy adhesions of the right colon. There was increased vascularity at the site however no evidence of endometriosis noted. I placed Interceed at the uterosacral excision site as well as the posterior cul-de-sac excision sites. The procedure was complete. Trendelenburg was reversed and flattened. The abdomen was desufflated. The patient was given several deep breaths to further desufflate the abdomen the ports were removed by the SEAWEED HARVESTER and the incisional sites were reapproximated using 4-0 Monocryl by the SEAWEED HARVESTER under my supervision. Steri-Strips and OpSite site dressing were placed over these incisions. Additional Sensorcaine was administered for local analgesia. The ZAMI uterine manipulator was removed. The patient was placed into dorsal supine position, awakened, extubated and transferred to the recovery room without complication. Sponge and needle counts were correct x2. Patient tolerated the procedure well. - Complications None - Admit VTE Documentation VTE Present on Admission: No VTE Mechan Device Prophylaxis: SCD's VTE Pharm Prophylaxis ordered?: No
[2020-01-22 11:15] VITALS: BP 105/59; BP 125/74; PULSE 67; RESP 16; TEMP 36.1; O2SAT 100
[2020-01-22 11:32] VITALS: BP 105/59; BP 119/75; PULSE 66; RESP 16; O2SAT 98
[2020-01-22 11:45] VITALS: BP 105/59; BP 117/73; PULSE 51; RESP 16; O2SAT 100
[2020-01-22 11:46] VITALS: BP 105/59; BP 112/80; PULSE 52; RESP 16; TEMP 36.1; O2SAT 100
[2020-01-22] MEDS: HYDROcodone Bitartrate/Apap 5/325 Tablet PO (12:07)
[2020-01-22 13:22] VITALS: BP 105/59; BP 109/66; PULSE 71; RESP 16; TEMP 36.7; O2SAT 100
== END 2020-01-22 14:00 | disposition home or self-care (01) ==
LOC: SDC 07:25 → AC 07:27
PROVIDERS: Anesthesiology; PCP Family Medicine; Referring Provider Obstetrics & Gynecology; Visit Provider Obstetrics & Gynecology
PROC: (CPT 49320; principal; 2020-01-22 08:45)
DX: R10.2 Pelvic and perineal pain (principal); G89.29 Other chronic pain; J45.909 Unspecified asthma, uncomplicated; Z79.899 Other long term (current) drug therapy; N94.12 Deep dyspareunia; N80.9 Endometriosis, unspecified
CPT/HCPCS: 00840; 58662; 36415; 81025; 84439; 84443; 84480; 84481; 85027; 85610; 85730; 86850; 86900; 86901; 87426; 88305; C9803; J7120; J2405; Q9968

== ENCOUNTER → 2020-12-22 13:03 | Outpatient (CLI) | payer SELFPAY ==
[2020-12-22 16:49] LABS: Free T3 2.5 pg/mL (2.18-3.98); T4 Free Direct 1.01 ng/dL (0.76-1.46); Thyroid Stim Hormone (TSH) 1.37 uIU/mL (0.358-3.74)
== END ==
PROVIDERS: PCP Family Medicine; Visit Provider Obstetrics & Gynecology
DX: O99.282 Endocrine, nutritional and metabolic diseases complicating pregnancy, second trimester (principal); E03.9 Hypothyroidism, unspecified; Z3A.00 Weeks of gestation of pregnancy not specified
CPT/HCPCS: 36415; 84439; 84443; 84481

== ENCOUNTER 2021-03-15 09:45 | Outpatient (CLI) | payer SELFPAY ==
[2021-03-15 10:53] LABS: Hematocrit 34.4 % (37-47); Hemoglobin 11.3 g/dL (12.0-15.0); Mean Corp Hgb Conc 32.8 g/dL (32-36); Mean Corpuscular Hgb 29.8 pg (27.0-32.0); Mean Corpuscular Volume 90.8 fL (81-99); Platelet Count 218 K/mm3 (150-450); RBC Distribution Width CV 12.5 % (11.6-14.6); RBC Distribution Width SD 41.2 fl (35.1-43.9); Red Blood Count 3.79 M/mm3 (4.2-5.4); White Blood Count 7.4 K/mm3 (4.4-11.0)
[2021-03-15 11:13] LABS: Glucose Challenge Gest 1H 50g 135 mg/dL (70-140); T4 Free Direct 0.94 ng/dL (0.76-1.46)
== END 2021-03-15 23:59 | disposition short-term general hospital (02) ==
LOC: WOBLAB 09:46
PROVIDERS: PCP Family Medicine; Visit Provider Obstetrics & Gynecology
DX: O99.283 Endocrine, nutritional and metabolic diseases complicating pregnancy, third trimester (principal); E03.9 Hypothyroidism, unspecified; Z3A.00 Weeks of gestation of pregnancy not specified
CPT/HCPCS: 36415; 82950; 84439; 84443; 84481; 85027

== ENCOUNTER 2021-05-09 20:12 | Outpatient (CLI) | payer SELFPAY ==
[2021-05-09 20:39] VITALS: BMI 31.6
--- NOTE | 2021-05-16 16:19 | PCM.PN.BLA ---
Progress Note at 36/4 weeks presenting for contractions. Cervical exam unchanged at 1 cm 2 hours apart per RN. Discharge home with labor precautions. Follow-up in office this week. NST reactive. heart rate 135/moderate variability/+accel/no decel, toco rare ctx
== END 2021-05-09 23:59 | disposition home or self-care (01) ==
LOC: WPOUT 20:19 → WP 20:21
PROVIDERS: PCP Family Medicine; Visit Provider Student in an Organized Health Care Education/Training Program
DX: O47.03 False labor before 37 completed weeks of gestation, third trimester (principal); Z3A.36 36 weeks gestation of pregnancy
CPT/HCPCS: 59025; 59050; 99218; G0378

== ENCOUNTER 2021-05-11 13:44 | Outpatient (CLI) | payer SELFPAY | END 2021-05-11 23:59 | disposition home or self-care (01) | LOC: LABSPEC 13:45 | PROVIDERS: PCP Family Medicine; Visit Provider Obstetrics & Gynecology | DX: Z36.85 Encounter for antenatal screening for Streptococcus B (principal) | CPT/HCPCS: 87081 ==

== ENCOUNTER 2021-05-26 09:35 | Inpatient (IN) | payer SELFPAY ==
[2021-05-26] VITALS (17 sets, daily range): BP systolic 103–140; BP diastolic 53–91; PULSE 54–98; RESP 14–16; TEMP 36.1–36.8; O2SAT 94–98; BMI 32.3
[2021-05-26] MEDS: Lactated Ringers 1,000 ML 999 ML IV (10:20)
[2021-05-26] MEDS: Acetaminophen 500 MG Tablet 1000 MG PO ×2 (10:29→18:31)
[2021-05-26 10:50] LABS: Absolute Lymphocyte Count 1.66 X10^3/uL (0.83-4.51); Absolute Neutrophil Count 5.5 X10^3/uL (2.0-7.7); Basophil# 0.04 X10^3/uL; Basophil% 0.5 % (0-1); Eosinophil# 0.09 X10^3/uL; Eosinophils% 1.1 % (0-5); Hematocrit 33.2 % (37-47); Hemoglobin 10.7 g/dL (12.0-15.0); Lymphocyte # 1.66 X10^3/ul (0.83-4.51); Lymphocyte % 21.1 % (19-41); Mean Corp Hgb Conc 32.2 g/dL (32-36); Mean Corpuscular Hgb 27.2 pg (27.0-32.0); Mean Corpuscular Volume 84.5 fL (81-99); Mean Platelet Vol. 11.5 fl (6.2-12.0); Monocyte# 0.55 X10^3/uL; NRBC Flagged by Analyzer 0 % (0-5); Neutrophil % 69.8 % (47-70); Platelet Count 176 K/mm3 (150-450); RBC Distribution Width CV 13.5 % (11.6-14.6); RBC Distribution Width SD 41.7 fl (35.1-43.9); Red Blood Count 3.93 M/mm3 (4.2-5.4); White Blood Count 7.9 K/mm3 (4.4-11.0)
[2021-05-26] MEDS: Lactated Ringers 1,000 ML 150 ML IV (11:28)
--- NOTE | 2021-05-26 12:11 | HP.PCM.OB_ITS ---
History and Physical Date of Admission: 05/26/21 ACOG ANTEPARTUM RECORD - HISTORY AND PHYSICAL (05/26/2021) Name: LEXIS PARK History of this : This is a 25 year old [id number] presents at 39 wks + 0 days gestation. She has a history of chronic pelvic and back pain associated with sacro-coccygeal misalignment with plan for primary section. OB Physician: Lulu Graves MD 's Physician: Sharmin Children'edvin ...................................................................... : 1995 Age: 25 Address: [address] [place] [address] Phone: H) [phone] Insurance Carrier: Emergency Contact: LUIZA KELLER [phone] ...................................................................... Final PONCHO: 06/02/21 By Ultrasound: PARITY: (G-Total Pregnancies P-Fullterm,Premature,Induced AB,Spont AB, Ectopics, Multipl e,Living) PONCHO CONFIRMATION: By LMP: 12/25/19 Final PONCHO: 06/02/21 OB PROBLEM LIST: ALLERGIC: OXYCODONE (SHORTNESS OF BREATH)! Asthma; occasional rescue inhaler use Back pain, chronic pain issues, dislocated tailbone Genetic and carrier screening at [facility] Had Covid vaccine prior to - ? Booster Hx of pp anxiety with counseling Hypothyroidism IUI, [facility] in [place] Plans to breastfeed ALLERGIES: No Known Drug Allergies Oxycodone Shortness of breath MEDICATIONS: albuterol sulfate HFA 90 mcg/actuation aerosol inhaler two puffs as needed Flovent HFA 220 mcg/actuation HFA aerosol inhaler 2 puffs twice a day Supplement (s) [No Strength] Desmond Multivitamin Synthroid 112 Mcg Tablet 1 tab po daily Unisom (doxylamine) 25 mg tablet One tablet by mouth at bedtime Vitamin B-6 50 mg tablet One tablet by mouth 2 x daily SOCIAL HISTORY: Smoking - Never Alcohol Use - denies drinking Diet - balanced Diet, caffeine < 2 drinks per day and tries to drink about 60 oz day. Lifestyle - Exercise - minimal Employer - [employer] Job Description - Illicit Drug Use - denies use of street drugs Sexual Activity - Residence - with spouse Place of - [place], [place] Spouse-Sig Other Name - Justin Park Spouse-Sig Other Occupation - [employer] Spouse-Sig Other Phone No - [phone] Children Name(s) - Jaimie PRIOR DELIVERY HISTORY DEL DATE GEST LAB WT LB WT OZ TYPE ANES LABOR TX 01 Dec 06 38 14 8 8 Vag Epidural No ANTEPARTUM FLOW CHART VISIT RTC FU F F MO U U DATE WK MD WKS HT PN HR M SS BP ED WT MO GL D EF ST __ ____ ___ __ __ ___ __ __ __ ___ __ __ __ ___ __ 31 Apr 38 SHM 1 38 V + + 112/78 sl 169 ne ne 29 Apr 37 SHM 1 37 V + + 114/84 0 168 - - 2 50 -3 23 Apr 36 SHM 1 36 V + + 110/72 sl 167 - - 16 Apr 35 SHM 1 36 V + + 106/72 0 165 - - 11 Apr 35 SHM 2 35 V + + 124/80 0 165 tr - Mar 32 SHM 2 32 V + + 106/60 0 162 - - 08 Mar 30 SHM 2 30 + + 130/70 0 160 - - Mar 18 SHM 2 28 V + + 98/66 sl 160 tr 1+ Feb 11 SHM 4 24 + + 94/60 0 157 - - Feb 07 SHM 4 19 + + 120/70 0 157 tr - Jan 04 SHM 4 16 + ? 100/70 0 152 - - ANTEPARTUM NOTE(S): May 19 2021: Consent signed, Ensure given. May 17 2021: congestion, normal discomforts May 11 2021: May 04 2021: Apr 29 2021: see note Apr 12 2021: Mar 29 2021: see note Mar 15 2021: dipak kelly, 1 month postcovid Feb 16 2021: SOB Jan 19 2021: comp u/s today Dec 22 2020: see note COMPREHENSIVE ANTEPARTUM NOTE(S): May 24 2021: H taken to OB. tkg May 19 2021: C/S consents signed and reviewed. Pt declines b/l tubal sterilization, will plan for Liletta IUD placement - reviewed r/b for Liletta, bleeding profile. May 17 2021: Lexis is here for a pnv at 37/5. Good FM. No edema present. Discussed dipak kelly, pelvic pressure and back pain. Mild lower pelvic cramping present. Continues to experience congestion, states inhaler prescribed by Dr. HOLM was initially helping but she is feeling worse. No other concerns expressed. Cervix check desired. MK May 17 2021: Recommend Flonase otc, increase steroid inhaler use to 2 pumps bid. May 16 2021: GBS neg May 11 2021: Lexis is 36w6d here for PNV good FM slight edema. States she went to the ER on sunday for contractions that were 4-6mins apart. States they checked her cervix and she was 1-2cm dilated. They monitored her for a few hours and rechecked her cervix and said she wasnt progressing and sent her home. States her contractions are not timable but still reports having them. GBS and LARC today. BR May 11 2021: GBS obtained. Contraceptive counseling - pt considering options further. Declines LARC at this time. May 04 2021: Lexis is 35w6d here for PNV good FM no edema. States last night she had Carson kelly q 15 mins for about an hour and the q8 mins for about another hour. States she was out walking around a lot and when she got home she laid down and felt better, Denies any since. Also still has her persistent cough at night. BR May 04 2021: US today for hx covid in - EFW 2687g (40th%), PACO 15.4cm. Reviewed cervical exam indications. Apr 29 2021: Lexis relates more pressure but goes away when she gets off her feet. Reviewed FM, SROM, and labor. GBS next visit. Wants u/s at 36 weeks to check size? She is encouraged to have Tdap. LMT Apr 29 2021: Growth US next visit for hx COVID in . PTL, ROM, FM precautions. Apr 12 2021: Lexis is 32w5d here for PNV good FM no edema states she is well with no concerns today. BR Apr 12 2021: Discussed ERAS protocol for . Pain management. Poorly tolerated Narco in past. Has SOB with oxycodone, will avoid. Mar 29 2021: Lexis is here for visit. She has numerous concerns today. She had Covid recently and now has another illness. Asking for antibiotic. Has laryngitis and no fever. Advised this is likely viral but she can talk with Dr HOLM to see if she will provide antibiotic. She relates mole on R breast that has become larger and wants this looked at today. LMT Mar 29 2021: Laryngitis present - pt notes nasal drainage and has moved to chest with cough. Using Robitussin DM. Ok to continue at this time. Recommend supportive therapy for next week. f/u with Derm first week of April for right breast lesion. Mar 15 2021: Lexis is here for a pnv at 28/5. Good FM. Sl edema present in hands and feet. Experiencing an increase in dipak kelly, states she's often on her feet and lifts/carries her younger child. Has questions regarding possible effects of Covid on her baby, pt has Covid approx 1 month ago. 1 hr GTT drawn today along w/ other labs. MK Mar 15 2021: PTL, ROM, FM precautions. Plans to proceed with primary section, will schedule. Glucola today with TFTs. Feb 16 2021: Lexis is here for a pnv at 24/6. Good FM. No edema present. Reports increased SOB recently. Pt has asthma but states she wasn't this SOB w/ her first . Multiple recent negative Covid tests. Notices more SOB at night, states she sleeps elevated on her sides. No other concerns expressed. 1 hr GTT supplies and instructions given for next appt. Feb 16 2021: Lexis is here with her mom, Opal, who is visiting from [place]! Lexis notes heaviness in the chest lying down at night. She lies on her right side. It typically will last for several hours and resolves with sitting upright or forward or positioning on all fours. Continues to tolerate daily activities without need for frequent breaks or sweating. Denies wheezes, chest pain, shortness of breath, s Jan 19 2021: Lexis is here for visit. She had comp u/s today that she will review with Dr HOLM. She relates that she still has nausea and asking about this? Does note improvement with Pepcid and the Unisom. Advised to take Pepcid daily to see if this helps, Unisom then as needed. Will give glucola at next visit. LMT Jan 19 2021: anatomy scan today wnl, EFW 48th%, POSTERIOR placenta. ok for . MALE. Pt leaning towards at this time. She is concerned about showing so early. Pt reassured FH and EFW appropriate. Discussed exercise in , pt continues PT exercises and diaphragmatic breathing, uses SI support belt. No recent asthma exacerbation, declines Albuterol refill. Dec 22 2020: Lexis is here for visit. She is transferring from [facility]. She did 1 cycle of IUI and conceived. She has mild nausea. She had carrier and genetic screening with [facility]. She has been diagnosed with dislocated tailbone and is undergoing treatment with a Chiropractor. Dr Calloway and her Chiroprator have no recommendation but feel its reasonable for her to request a C/S if she desires. Adv Dec 22 2020: Transfer from [facility] following Letrozole/IUI conception. Pt with hx chronic back pain - had evaluation at [facility] and was diagnosed with displaced tailbone. She has had specialized chiropractic tailbone adjustment in [place] to address this, but became shortly thereafter. Expresses concern about best mode of delivery to minimize worsening/recurrence of painfulne Nov 23 2020: TELEHEALTH NOB VISIT, 45 MINUTE DURATION. Lexis is a 24 year old with an PONCHO of 06/02/2021, current GA is 12 w 5 d. She is transferring care back to this office from [facility] in [place]; achieved with IUI. She had carrier and first trimester genetic screening through [facility], as well as initial labs. Lexis resides with her , Justin, and their 3 year old daughter, Violet. Ervin REVIEW OF SYSTEMS: GENERAL - Denies fever, or chills SKIN - Denies rash, new skin lesions, or change in moles EYES - Denies blurred vision, or change in visual acuity EARS - Denies ear pain, or difficulty hearing NOSE - Denies nasal congestion, discharge, or bleeding MOUTH - Denies sore throat, or difficulty swallowing NECK - Denies pain or swelling RESPIRATORY - Denies shortness of breath, cough, wheezing CARDIOVASCULAR - Denies palpitations, chest pain, orthopnea, PND, peripheral edema, syncope or claudication GASTROINTESTINAL - Denies nausea, vomiting, diarrhea, constipation, Denies abdominal pain, melena and or bright red blood GENITOURINARY - Denies dysuria, frequency of urination, urgency, or hesitancy MUSCULOSKELETAL - Denies joint or muscle pain, or back pain NEUROLOGICAL - Denies localized numbness, weakness, or tingling PSYCHIATRIC - Denies depression, anxiety, substance abuse or suicide attempts ENDOCRINE - Denies heat or cold intolerance, weight loss or gain, increasing thirst HEMATO-IMMUNOLOGIC - Denies easy bruising, bleeding, oral ulcerations or recurrent infections GENETICS SCREENING: Age 35+ years: No Thalassemia: No Neural Tube Defect: No Down Syndrome: No TANNER-SACHS: No Sickle Cell Disease: No Hemophilia: No Musc. Dystrophy: No Cystic Fibrosis: No-declines screening [place] Chorea: No Mental Retardation: No Fragile X: No Other genetic: No Other defects: No SABs/still births: No Drugs since LMP: No INFECTION HISTORY: High risk AIDS: No High risk Hepatitis: No Exposed to TB: No Exposed to Herpes: No Rash/viral illness since LMP: No History of STD: No MENSTRUAL HISTORY: *Menses Amount/Duration: 4-7Menses Regularity: RegularFrequency: 26- 32Menarche (Age Onset): 7* PAST SUMMARY: PARITY: 1. Total Pregnancies............ 2 2. Full Term Pregnancies........ 1 3. Premature.................... 0 4. Abortions - Induced.......... 0 5. Abortions - Spontaneous...... 0 6. Ectopics..................... 0 7. Multiple Births.............. 0 8. Living Children.............. 1 PAST #1: Date of :.................. 11/19/17 Gestation Weeks:................ 38 Length of labor(hours):......... 14 Sex:............................ F Weight-lbs:............... 8 Weight-oz:................ 8 Type of Delivery:............... Vag Type of Anesthesia:............. Epidural Place of Delivery:.............. [place] Treatment of Labor?:.... No Comment: SROM PHYSICAL EXAMINATION General Appearence: 25 yo female in no acute distress Vital Signs: AF, VSS Heart: RRR without rubs or gallops Lungs: CTA x 2 Breasts: deferred Abdomen: gravid Pelvis: Cervix: deferred Presentation: cephalic Station: Fetus: Size: AGA Movement: present Heart: 130, moderate variability, + accelerations, no decelerations LAB TEST(S) ORDERED SINCE:09/05/20 12/22/2020 THYROID STIM HORMONE (TSH) 12/22/2020 T4 FREE DIRECT 12/22/2020 FREE T3 11/23/2020 Initial OB Labs 11/23/2020 GC-Chlamydia 05/26/2021 TYPE AND SCREEN 05/26/2021 CBC W/DIFF, AUTOMATED 05/14/2021 RULE OUT BETA STREP (GRP. B) 03/16/2021 FREE T3 03/15/2021 THYROID STIM HORMONE (TSH) 03/15/2021 T4 FREE DIRECT 03/15/2021 GLUCOSE CHALLENGE GEST 1H 50G 03/15/2021 CBC-COMPLETE BLOOD CNT NO DIFF == ==== Order Observation Description Value Ref_Range A * Site == ==== S [facility]~[address] [place], [address]~ TYPE AND SCRE AB SCREEN GEL NEGATIVE ML CBC W/DIFF, AUT NOTE ALEJO CBC W/DIFF, AUT WBC 7.9 K/mm3 4.4-11.0 ML CBC W/DIFF, AUT RBC 3.93 M/mm3 4.2-5.4 L ML CBC W/DIFF, AUT HGB 10.7 g/dL 12.0-15.0 L ML CBC W/DIFF, AUT HCT 33.2 37-47 L ML CBC W/DIFF, AUT MCV 84.5 fL 81-99 ML CBC W/DIFF, AUT MCH 27.2 pg 27.0-32.0 ML CBC W/DIFF, AUT MCHC 32.2 g/dL 32-36 ML CBC W/DIFF, AUT RDW CV 13.5 11.6-14.6 ML CBC W/DIFF, AUT RDW SD 41.7 fl 35.1-43.9 ML CBC W/DIFF, AUT PLT 176 K/mm3 150-450 ML CBC W/DIFF, AUT MPV 11.5 fl 6.2-12.0 ML CBC W/DIFF, AUT NEUT% 69.8 47-70 ML CBC W/DIFF, AUT LY% 21.1 19-41 ML CBC W/DIFF, AUT MONO% 7.0 0-10 ML CBC W/DIFF, AUT EO% 1.1 0-5 ML CBC W/DIFF, AUT BASO% 0.5 0-1 ML CBC W/DIFF, AUT IG% 0.500 0.0-0.9 ML IG% - Immature Granulocytes (promyelocytes, myelocytes and metamyelocytes) > 1% indicates that a LEFT SHIFT is Present. CBC W/DIFF, AUT ABSOLUTE NEUT 5.5 X10 3/uL 2.0-7.7 ML CBC W/DIFF, AUT ABSOLUTE LYMPH 1.66 X10 3/uL 0.83-4.51 ML CBC W/DIFF, AUT NUCLEATED RBC 0 0-5 ML RULE OUT BETA S NOTE ALEJO FREE T3 NOTE ALEJO FREE T3 FREE T3 2.0 pg/mL 2.18-3.98 L ML T4 FREE DIRECT NOTE ALEJO T4 FREE DIRECT T4 FREE DIRECT 0.94 ng/dL 0.76-1.46 ML THYROID STIM HO NOTE ALEJO THYROID STIM HO TSH 1.50 uIU/mL 0.358-3.74 ML GLUCOSE CHALLEN NOTE ALEJO GLUCOSE CHALLEN GLU GEST 50G 1H 135 mg/dL 70-140 ML CBC-COMPLETE BL NOTE ALEJO CBC-COMPLETE BL WBC 7.4 K/mm3 4.4-11.0 ML CBC-COMPLETE BL RBC 3.79 M/mm3 4.2-5.4 L ML CBC-COMPLETE BL HGB 11.3 g/dL 12.0-15.0 L ML CBC-COMPLETE BL HCT 34.4 37-47 L ML CBC-COMPLETE BL MCV 90.8 fL 81-99 ML CBC-COMPLETE BL MCH 29.8 pg 27.0-32.0 ML CBC-COMPLETE BL MCHC 32.8 g/dL 32-36 ML CBC-COMPLETE BL RDW CV 12.5 11.6-14.6 ML CBC-COMPLETE BL RDW SD 41.2 fl 35.1-43.9 ML CBC-COMPLETE BL PLT 218 K/mm3 150-450 ML CBC-COMPLETE BL MPV 10.0 fl 6.2-12.0 ML T4 FREE DIRECT NOTE ALEJO T4 FREE DIRECT T4 FREE DIRECT 1.01 ng/dL 0.76-1.46 ML THYROID STIM HO NOTE ALEJO THYROID STIM HO TSH 1.37 uIU/mL 0.358-3.74 ML FREE T3 NOTE ALEJO FREE T3 FREE T3 2.5 pg/mL 2.18-3.98 ML GC-Chlamydia Chlamydia NEGATIVE Negative GC-Chlamydia GC NEGATIVE No Growth Initial OB Labs Blood Type O Initial OB Labs Rh Type POSITIVE Initial OB Labs Antibody Screen NEGATIVE Negative Initial OB Labs Hemoglobin Initial OB 13.9 Initial OB Labs Hematocrit Initial OB 41.6 Initial OB Labs PLT 233 Initial OB Labs Rubella IMMUNE Immune Initial OB Labs HBsAg NEGATIVE Negative HEP C ANTIBODY - NEG Initial OB Labs HIV Test NEG Negative O POSITIVE Group B Beta Streptococcus is not isolated. == ==== Impression /Plan: 39 wks + 0 days intrauterine . Preparations in progress for delivery, plan primary section with Liletta placement. Assessment & Plan Assessment/Plan (1) 39 weeks gestation of : (2) Chronic pelvic pain in female: (3) Chronic back pain:
[2021-05-26] MEDS: Sodium Citrate/Citric Acid 30 ML UDC PO (12:59)
[2021-05-26] MEDS: Cefazolin 2 GM in 0.9% Normal Saline 100 ML IV (13:04)
[2021-05-26] MEDS: Levonorgestrel IUD (Liletta) 1 EACH INTRA-UTER (13:45)
--- NOTE | 2021-05-26 14:11 | OP.PCM_ITS ---
Assessment & Plan (1) delivery delivered: (2) 39 weeks gestation of : Details Operative Information Date of Procedure: 05/26/21 Pre-Operative Diagnosis: 1. 39 weeks gestation 2. Coccyx dislocation 3. Chronic low back and pelvic pain 4. LARC desired Post-Operative Diagnosis: 1. 39 weeks gestation 2. Coccyx dislocation 3. Chronic low back and pelvic pain 4. LARC desired Indications for : - (Coccygeal dislocation with chronic low back and pelvic pain following first delivery) Indications Narrative: 25-year-old 2 para 1-0-0-1 presents at 39 weeks gestational age for scheduled section with Liletta IUD placement. The patient was counseled regarding procedural risks, benefits, indications and alternatives. She declined a trial of labor. Informed consent was obtained. Classification: Scheduled Procedure Type: low transverse histology tech #1: Rosibel Spence Type of Anesthesia: Spinal Anesthesiologist: Lemuel Recinos Antibiotic Given: Ancef 2 grams IV x1 Drain: Ewing to straight drain Estimated Blood Loss: 750 ml Fluids Replaced: 1100 ml Findings Description of Procedure: Procedures performed: 1. Low transverse section 2. Liletta IUD placement The patient was taken to the operating room and spinal analgesia was administered. She is placed in a dorsal supine position with left lateral tilt. The perineum and abdomen were prepped and draped in sterile fashion. And the spinal was found to be adequate. A Pfannenstiel incision was made using a scalpel and brought down to incise the subcutaneous tissue and rectus fascia at the midline. Subcutaneous tissue was bluntly dissected off the fascia latera lly. The fascial incision was dissected laterally and cephalad using curved Yoder scissors. The superior leaflet of the rectus fascia was grasped using Annetta clamps and bluntly dissected and sharply dissected from the underlying rectus muscle. In a similar fashion the inferior rectus fascia was dissected from the underlying muscle. A significant rectus diastases was noted. The peritoneum was identified and entered [sharply]. The bladder blade was placed into the abdomen and the vesicouterine peritoneal fold identified. The fold was incised and a bladder flap created. Bladder blade was then repositioned to the abdomen. A low transverse hysterotomy was made using the [Metzenbaum scissors] to level of the membranes. The hysterotomy was extended bluntly cephalad and caudad. The membranes were then ruptured revealing clear fluid. The head was elevated and brought to the level of the hysterotomy and the delivered revealing a vigorous [male] infant. The cord was doubly clamped and cut after 30 seconds. The infant was passed to awaiting [nursery personnel]. The placenta was [expressed] from the uterus and appeared intact on inspection. The uterus was exteriorized and cleared of debris. The Liletta IUD was introduced into the uterine fundus using the applicator and released. The strings were guided towards the cervix. The hysterotomy was then repaired using 0 Vicryl running lock suture with excellent hemostasis. The bladder blade was removed. The anterior cul-de-sac was cleared of debris. The peritoneum and rectus muscles were reapproximated using 2-0 Vicryl running suture. The rectus fascia was closed using 0 strata fix running suture. The subcutaneous tissue was reapproximated using 2-0 Vicryl. The skin was closed using 4-0 Monocryl subcuticularly by the TRACTOR OPERATOR under my supervision. Mepilex occlusive dressing was placed over the incision. The fundus was firm. The patient was then transferred to the recovery room without complication. Sponge, instrument, and needle counts were correct ?2. Male infant, weight 3545 g Presentation: Positive for Vertex Amniotic Membrane Rupture Type: Artificial Amniotic Fluid Description: Clear Placental Delivery Description: Expressed Cord Vessel Description: 3 Vessels Cord Entanglement: None Infant A Gender: Male (1 minute): 9 (5 minute): 9 Delayed Cord Clamping: Yes Complications Risks of Surgery Discussed w/Patient: Bleeding, Anesthesia Risks, Infection, Injury to surrounding structure(s) including bowel and bladder and -
[2021-05-26] MEDS: Oxytocin 30 units/NS 500 ml 30 UNITS/500 ML IV.SOLN 167 UNITS IV (14:15)
[2021-05-26] MEDS: Ketorolac 30 MG/ML Syringe IV ×2 (14:58→21:06)
[2021-05-26] MEDS: Albuterol Sulfate 8 gm Inhaler (60 puffs) 2 PUFF INHALATION (15:45)
[2021-05-26] MEDS: Lactated Ringers 1,000 ML 100 ML IV (17:16)
[2021-05-26] MEDS: guaiFENesin Dm 10 ML UDC PO (18:19)
[2021-05-26] MEDS: 0.9% Saline Lock 10 ML Syringe IV (21:06)
[2021-05-26] MEDS: AMOXICILLIN 500 MG CAPSULE PO (21:10)
[2021-05-27] MEDS: guaiFENesin Dm 10 ML UDC PO ×4 (00:29→18:14)
[2021-05-27 00:31] VITALS: BP 111/67; PULSE 72; RESP 16; TEMP 36.1; O2SAT 96
[2021-05-27 02:40] VITALS: PULSE 65; RESP 14; O2SAT 95
[2021-05-27] MEDS: 0.9% Saline Lock 10 ML Syringe IV ×2 (02:50→08:21)
[2021-05-27] MEDS: Acetaminophen 500 MG Tablet 1000 MG PO ×2 (02:50→10:09)
[2021-05-27] MEDS: Ketorolac 30 MG/ML Syringe IV (02:51)
--- NOTE | 2021-05-27 03:12 | NURSING ---
incentive spirometer given to patient. education on use provided to family member and patient. pt encouraged to perform while awake 10x per hour. this RN witnessed first attempt and pt was getting spirometer to reach 1750 to 2500. pt tolerated well.
[2021-05-27 05:05] VITALS: BP 96/53; PULSE 72; RESP 14; TEMP 36.2; O2SAT 96
[2021-05-27] MEDS: AMOXICILLIN 500 MG CAPSULE PO ×3 (05:14→22:16)
[2021-05-27 05:28] LABS: Hematocrit 28.8 % (37-47); Hemoglobin 9.3 g/dL (12.0-15.0); Mean Corp Hgb Conc 32.3 g/dL (32-36); Mean Corpuscular Hgb 27.6 pg (27.0-32.0); Mean Corpuscular Volume 85.5 fL (81-99); Platelet Count 152 K/mm3 (150-450); RBC Distribution Width CV 13.6 % (11.6-14.6); RBC Distribution Width SD 41.9 fl (35.1-43.9); Red Blood Count 3.37 M/mm3 (4.2-5.4); White Blood Count 8.7 K/mm3 (4.4-11.0)
[2021-05-27] MEDS: Levothyroxine 100 MCG Tablet PO (06:34)
[2021-05-27] MEDS: Albuterol Sulfate 8 gm Inhaler (60 puffs) 2 PUFF INHALATION ×3 (06:34→22:18)
--- NOTE | 2021-05-27 07:34 | PCM.PN.OB ---
Subjective Subjective No overnight complaints. Objective Data Objective Data Vital Signs: Vital Signs Temp Pulse Resp BP Pulse Ox 97.2 F L 72 14 96/53 L 96 05/27/21 05:05 05/27/21 05:05 05/27/21 05:05 05/27/21 05:05 05/27/21 05:05 Oxygen Delivery Method Room Air Weight: 171 lb 4.787 oz Body Mass Index (BMI) 32.3 Intake & Output: Intake and Output for Last 24 Hours 05/25/21 05/26/21 05/27/21 23:59 23:59 23:59 Intake Total 2202.5 / 2202.5 1741.67 / 1741.67 Output Total 800 / 800 1600 / 1600 Balance 1402.5 / 1402.5 141.67 / 141.67 Lab / Micro Data Result Diagrams: 05/27/21 05:20 Labs: Laboratory Results - last 24 hr 05/26/21 10:20: WBC 7.9, RBC 3.93 L, Hgb 10.7 L, Hct 33.2 L, MCV 84.5, MCH 27.2, MCHC 32.2, RDW Std Deviation 41.7, RDW Coeff of Alvaro 13.5, Plt Count 176, MPV 11.5, Immature Gran % (Auto) 0.500, Neut % (Auto) 69.8, Lymph % (Auto) 21.1, [place] % (Auto) 7.0, Eos % (Auto) 1.1, Baso % (Auto) 0.5, Absolute Neuts (auto) 5.5, Absolute Lymphs (auto) 1.66, Nucleated RBC % 0 05/26/21 10:20: Blood Type O POSITIVE, Antibody Screen NEGATIVE 05/27/21 05:20: WBC 8.7, RBC 3.37 L, Hgb 9.3 L, Hct 28.8 L, MCV 85.5, MCH 27.6, MCHC 32.3, RDW Std Deviation 41.9, RDW Coeff of Alvaro 13.6, Plt Count 152, MPV 11.0 Physical Exam Const alert, oriented x3, no apparent distress, average body habitus, healthy appearing and well nourished HEENT normocephalic and moist oral mucous membranes Head and Scalp: atraumatic Face and Sinus: normal facial exam Neck full ROM Resp normal respiratory effort, no retractions and no use of accessory muscles GI GI Narrative: Soft, nontender, bandage clean dry and intact Extremity normal to inspection, full ROM and no clubbing, cyanosis or edema Psych mental status grossly normal, affect normal, speech normal and activity/motor behavior normal Assessment & Plan (1) delivery delivered: PLAN: Postop day 1 status post elective primary section. Breast-feeding. Pain well controlled. Baby transported to [facility] for apnea. Likely discharge home tomorrow
[2021-05-27 08:17] VITALS: BP 105/75; PULSE 92; RESP 16; TEMP 36.6; O2SAT 96
[2021-05-27] MEDS: Ibuprofen 600 MG Tablet PO ×3 (08:33→20:50)
[2021-05-27] MEDS: Senna/Docusate Sodium 1 Tablet PO (10:10)
[2021-05-27] MEDS: Prenatal Vits Tablet 1 TABLET PO (10:11)
[2021-05-27] MEDS: HYDROcodone Bitartrate/Apap 5/325 Tablet PO ×4 (10:18→21:24)
--- NOTE | 2021-05-27 13:23 | RAD_ITS ---
STUDY: X-RAY CHEST REASON FOR EXAM: Female, 25 years old. Persistent cough, wheezing, hx asthma, pod1 c/s TECHNIQUE: PA and lateral views of the chest. COMPARISON: None. FINDINGS: The lungs are clear and expanded. There is no demonstrated pleural abnormality. Normal size heart. Normal mediastinum and guerita. Normal visualized pulmonary arteries. Normal visualized aortic arch and descending thoracic aorta. There is a dextroscoliosis of the thoracic spine. Pectus excavatum deformity. Normal visualized ribs, clavicles, and shoulders. There is no demonstrated abnormality of the visualized soft tissue structures of the upper abdomen. RAD/Chest PA and Lateral IMPRESSION: Dextroconvex scoliosis of the thoracic spine. Pectus excavatum deformity. The lungs are clear. Electronically Signed: Johnie Robles MD at 13:51 EDT ,
[2021-05-27] MEDS: Benzonatate 100 MG Capsule PO ×3 (14:22→22:17)
[2021-05-27 14:59] VITALS: BP 133/65; PULSE 67; RESP 16; TEMP 36.4; O2SAT 97
[2021-05-27 20:58] VITALS: BP 122/82; PULSE 71; RESP 16; TEMP 36.6; O2SAT 100
[2021-05-28] MEDS: guaiFENesin Dm 10 ML UDC PO ×2 (00:46→06:53)
[2021-05-28] MEDS: Benzonatate 100 MG Capsule PO ×2 (02:43→06:52)
[2021-05-28] MEDS: Ibuprofen 600 MG Tablet PO ×2 (02:43→09:02)
[2021-05-28 02:52] VITALS: BP 103/66; PULSE 70; RESP 16; TEMP 36.5; O2SAT 97
[2021-05-28] MEDS: HYDROcodone Bitartrate/Apap 5/325 Tablet PO ×2 (02:55→11:37)
[2021-05-28] MEDS: Albuterol Sulfate 8 gm Inhaler (60 puffs) 2 PUFF INHALATION (04:24)
--- NOTE | 2021-05-28 06:29 | NURSING ---
Call placed to , informed about tylenol dosing of 4100mfg in 24 hour period. Pt now wanting to try to only take tylenol and not [place], requesting higher dose of Tylenol. New order received for Tylenol 500mg Q 6 hours.
[2021-05-28] MEDS: Levothyroxine 100 MCG Tablet PO (06:53)
[2021-05-28] MEDS: AMOXICILLIN 500 MG CAPSULE PO (06:53)
[2021-05-28] MEDS: Acetaminophen 500 MG Tablet PO (06:59)
[2021-05-28 07:40] VITALS: BP 116/80; PULSE 86; RESP 16; TEMP 36.1
--- NOTE | 2021-05-28 09:07 | PCM.PN.OB ---
Subjective Subjective Postop day 2. Feeling improved. Cough improved. Pumping going well. Baby doing well at [facility]. Objective Data Objective Data Vital Signs: Vital Signs Temp Pulse Resp BP Pulse Ox 97 F L 86 16 116/80 97 05/28/21 07:40 05/28/21 07:40 05/28/21 07:40 05/28/21 07:40 05/28/21 02:52 Oxygen Delivery Method Room Air Weight: 77.7 kg Body Mass Index (BMI) 32.3 Intake & Output: Intake and Output for Last 24 Hours 05/26/21 05/27/21 05/28/21 23:59 23:59 23:59 Intake Total 2202.5 / 2202.5 1941.67 / 1941.67 Output Total 800 / 800 2650 / 2650 Balance 1402.5 / 1402.5 -708.33 / -708.33 Lab / Micro Data Result Diagrams: 05/27/21 05:20 Radiography Diagnostic Testing: Radiology Impression Chest X-Ray 05/27/21 13:23 IMPRESSION: Dextroconvex scoliosis of the thoracic spine. Pectus excavatum deformity. The lungs are clear. Electronically Signed: Johnie Robles MD at 13:51 EDT , Physical Exam Const alert, oriented x3 and no apparent distress HEENT normocephalic Head and Scalp: atraumatic Neck full ROM Resp normal respiratory effort Cardio regular rate GI normal to inspection, nondistended, normoactive bowel sounds GI Narrative: Uterus 2 cm below umbilicus dressing clean and dry, Back/Spine normal ROM Extremity normal to inspection Extremity Narrative: Minimal pedal edema Neuro no focal motor deficits and no sensory deficits noted Psych mental status grossly normal and affect normal Assessment & Plan (1) delivery delivered: PLAN: Postop day 2 status post primary section. Cough improved. Continue Flovent and Robitussin. Stop Romaine Vance, category L4 for . Discussed half-life of 3 to 8 hours. Do not use breastmilk to feed baby until tomorrow morning. Continue to pump. Discussed supportive care on discharge. Home today. (2) Acute postoperative pain:
--- NOTE | 2021-05-28 09:09 | PCM.DC ---
Discharge Instructions Diet Discharge Diet: No restrictions Activity Discharge Activity: Return to Normal Activity and May Shower May resume sexual activity in: 4-6 weeks Weight Bearing Status: Weight bearing as tolerated Lifting Restrictions: No greater than 25 pounds Dressing / Incision Call your doctor if your incision/area has: Continuous Slow Oozing, Sudden Increased Bleeding, Increased Redness and Foul Smelling Discharge Call your doctor if you observe: Fever of 101 or Higher, Change in Color, Inability to urinate, Using more than 1 pad per hour, Shortness of breath, Dizziness, Swelling in the ankles, Chest pain and Calf discomfort Remove Dressing in: 1 week Cleanse incision/area with: Soap & Water Follow Up Care Please Follow Up With: Lulu Woodruff MD When: 2-week post operative visit. Test Results: Test results from this visit will be discussed in further detail at your follow-up appointment, if applicable. Discharge Plan Admission Admit Date/Time: 05/26/21 09:35 Primary Reason for Your Visit: section Attending Provider: Lulu Woodruff Primary Care Provider: Frederic Jacome Discharge Orders/Prescriptions Prescriptions: New hydrocodone-acetaminophen 5-325 mg tablet 1 tab PO Q6H PRN PRN (Reason: pain (scale score 7-10)) 4 Days Qty: 16 RF: 0 ibuprofen 600 mg Tablet 600 mg PO TID PRN PRN (Reason: pain) Qty: 30 RF: 0 levothyroxine 100 mcg Tablet 100 mcg PO 0600 Qty: 60 RF: 3 Flovent HFA 220 mcg/actuation Hfa Aerosol Inhaler 220 mcg inhalation BID PRN (Reason: shortness of breath or wheezing) Qty: 12 RF: 0 Continued albuterol sulfate 90 mcg/actuation HFA aerosol inhaler 2 puff INHALATION Q6H PRN (Reason: Sob &/Or Wheezing) RF: 0 inositol (bulk) 5,000 GM powder 4.1 gm PO DAILY RF: 0 ascorbic acid (vitamin C) 500 MG capsule, extended release 500 mg PO DAILY RF: 0 cholecalciferol (vitamin D3) 2,000 UNIT capsule 2,000 unit PO DAILY RF: 0 vit,[id number]-daxia 1 TABLET tablet 1 tab PO DAILY RF: 0 Flovent HFA 220 mcg/actuation Hfa Aerosol Inhaler 2 puff INHALATION BID RF: 0 Discontinued amoxicillin 500 mg Capsule 500 mg PO TID RF: 0 levothyroxine 112 mcg Tablet 112 mcg PO DAILY RF: 0 Referrals / Follow Up: Frederic Jacome MD [Primary Care Provider] - Disposition Disposition (needs filled in before D/C Order can be placed): Home, Self Care
[2021-05-28] MEDS: Senna/Docusate Sodium 1 Tablet PO (10:36)
[2021-05-28] MEDS: Prenatal Vits Tablet 1 TABLET PO (10:38)
== END 2021-05-28 12:00 | disposition home or self-care (01) | DRG 787 ==
PROVIDERS: Admitting Provider Obstetrics & Gynecology; PCP Family Medicine; Visit Provider Obstetrics & Gynecology
PROC: 10D00Z1 Extraction of Products of Conception, Low, Open Approach (ICD-10-PCS; CPT 59514; principal; 2021-05-26 11:45)
DX: O71.6 Obstetric damage to pelvic joints and ligaments (principal); O99.354 Diseases of the nervous system complicating childbirth; O99.892 Other specified diseases and conditions complicating childbirth; G89.29 Other chronic pain; Z37.0 Single live birth; Z3A.39 39 weeks gestation of pregnancy; Z30.430 Encounter for insertion of intrauterine contraceptive device; R10.2 Pelvic and perineal pain; M54.50 Low back pain, unspecified; R05.9 Cough, unspecified; Z86.16 Personal history of COVID-19
CPT/HCPCS: 59050; 71046; 85025; 85027; 86850; 86900; 86901; 99218; J7120; A4216; G0378

== ENCOUNTER → 2021-07-13 | Outpatient (CLI) | payer SELFPAY ==
[2021-07-13 11:56] LABS: Free T3 4.5 pg/mL (2.18-3.98); Thyroid Stim Hormone (TSH) 0.01 uIU/mL (0.358-3.74)
== END | disposition home or self-care (01) ==
PROVIDERS: PCP Family Medicine; Referring Provider Obstetrics & Gynecology; Visit Provider Obstetrics & Gynecology
DX: E03.9 Hypothyroidism, unspecified (principal)
CPT/HCPCS: 36415; 84439; 84443; 84481